=== PATIENT | female | born 1960 | race African-American/Black ===

== ENCOUNTER 2018-08-17 07:33 | Emergency (ER) | payer OTHER ==
[~2018-08-17] VITALS: Ht 162.6 cm; Wt 82.6 kg
== END 2018-08-17 08:19 | disposition home or self-care (01) ==
LOC: FSED 07:33
DX: R35.0 Frequency of micturition (principal); R33.9 Retention of urine, unspecified; I10 Essential (primary) hypertension
CPT/HCPCS: 81003; 87086; 99282